=== PATIENT | male | born 1985 | race Caucasian/White ===

== ENCOUNTER 2016-07-02 14:20 | Emergency (ER) | payer BC, OTHER ==
[2016-07-02] MEDS ORDERED: MULTIVIT INFUSN,ADULT 4,VIT K 10 ML, THIAMINE HCL 100 MG in NORMAL SALINE 1,000 ML IV SCH (14:45)
--- NOTE | 2016-07-02 14:53 | ERNOTE ---
Chest Pain/Cardiac HPI Date of Service: 07/02/16 Chief Complaint: Palpitations Time Seen by Provider: 07/02/16 14:47 Source: patient, family Exam Limitations: no limitations Immunizations: IMMUNIZATION HX Immunizations Up to Date Yes Allergies/Adverse Reactions: Allergies No Known Allergies Allergy (Unverified 07/02/16 14:36) Home Medications: HOME MEDICATIONS ALPRAZolam [Xanax] 2 mg PO TID PRN 07/02/16 [Last Taken Unknown] Dexlansoprazole [Dexilant] 30 mg PO DAILY 07/02/16 [Last Taken Unknown] Diltiazem HCl [Cardizem] 30 mg PO DAILY 07/02/16 [Last Taken Unknown] Lisinopril [Zestril] 10 mg PO DAILY 07/02/16 [Last Taken Unknown] Narrative: Drank a lot of alcohol last night. Today, racing irregular heart, numb face, numb hands and arms. Took two xanax at home before coming to the [facility] ER. A fib with rate of 180 three years ago, lasted 3 days, saw cardiology, cause unknown. Timing: constant Severity/Quality: moderate Location: other - no chest pain Chest Pain Radiation: other Activities at Onset: none Modifying Factors - Improves: Present: nothing Nitro Today/Relief: no nitro taken today Aspirin Treatment Today: no aspirin today Associated Symptoms: Present: dizziness, shortness of breath, palpitations, weakness Prior Chest Pain/Cardiac Workup: Reports: other - history of panic disorder Prior Treatment: Denies: currently on antibiotics Review of Systems - Review of Systems Constitutional: Present: See HPI EYE: Present: no symptoms reported ENT: Present: no symptoms reported Respiratory: Present: no symptoms reported Cardiology: Present: See HPI Gastrointestinal/Abdominal: Present: no symptoms reported Genitourinary: Present: no symptoms reported Musculoskeletal: Present: no symptoms reported Skin: Present: no symptoms reported Neurological: Present: anxiety Endocrine: Present: no symptoms reported Hematologic/Lymphatic: Present: no symptoms reported Psych: Present: See HPI All Other Systems: All systems neg except as marked - Patient's Past Medical History Patient History - Medical: Anxiety, Other - panic attacks Patient History - Cardiac/Respiratory: Atrial Fibrillation, Hypertension Patient History - Cancer: No Hx of Cancer Patient History - Surgical Procedures: Orthopedic - Social History Smoking Status: Current some day smoker Have you smoked in the past 12 months: Yes - Immunizations Immunizations Up to Date: Yes Physical Exam - Physical Exam General Appearance: Present: wd/wn, alert, anxious Eye Exam: Normal inspection: bilateral, PERRL: bilateral, EOMI: bilateral Ears, Nose, Throat: Present: normal ENT inspection Neck: Present: normal inspection, nontender. Absent: carotid bruit, thyromegaly Respiratory: Present: no respiratory distress, normal breath sounds Cardiovascular/Chest: Present: regular rate, rhythm, no murmur Gastrointestinal/Abdominal: Present: normal bowel sounds, nontender, nondistended, soft, no organomegaly Back Exam: Present: normal inspection, no CVA tenderness, no vertebral tenderness Extremity Exam: Present: normal inspection, no edema Neurological Exam: Present: alert, oriented, no motor/sensory deficits Skin Exam: Present: normal color, warm/dry ED Progress - Results and Orders Patient's Lab Results:: I have reviewed the patient's lab results. - Vital Signs Patient's Vital Signs:: I have reviewed the patient's vital signs. Vital Signs: Vital Signs 07/02/16 07/02/16 14:33 14:40 Temperature 37.1 C Pulse Rate 104 H 82 Respiratory 14 Rate Blood Pressure 155/92 O2 Sat by Pulse 100 Oximetry - EKG EKG: NSR EKG read: Interp. by me - Progress/Reassessment Chief Complaint: Palpitations Progress:: Improved Departure - Departure Clinical Impression: Panic disorder, Alcohol abuse Disposition: Home self-care Condition: Good Instructions: Panic Attacks, [id number], Alcohol Use Disorder Additional Instructions: Follow up with your doctor in 1-[address] else [address] at least up until midnight today.
[2016-07-02 15:12] LABS: Hematocrit 44.4 % (42.0-52.0); Hemoglobin 15.4 gm/dL (13.5-18.0); Mean Cell Volume 92.1 fl (78-100); Mean Corpuscular Hgb Conc 34.7 g/dl (32-36); Mean Platelet Volume 10.1 fl (6.0-9.5); Neutrophil # 5.7 K/mm3 (1.3-6.0); Neutrophil % 67.1 % (42-75.0); Platelet Count 280 K/mm3 (150-450); Red Blood Count 4.82 M/mm3 (4.7-6.0); Red Cell Distribution Width 12.6 % (11.5-14.0); White Blood Count 8.5 K/mm3 (4.0-10.5)
[2016-07-02 15:33] LABS: ALT 33 U/L (19-67); AST 28 U/L (0-48); Albumin * 4.3 gm/dl (3.4-5.0); Alkaline Phosphatase * 80 U/L (50-170); Anion Gap 16.4 mmol/L (6.8-13.8); BUN/Creatinine Ratio 10.6 (9.0-21.6); Bilirubin, Total 0.4 mg/dL (0.0-1.1); Blood Urea Nitrogen 12 mg/dL (6-23); Ca. Corrected For Albumin 8.3 mg/dL (8.4-10.2); Calcium * 8.9 mg/dL (7.9-10.9); Carbon Dioxide 26.2 mmol/L (24-32.6); Chloride 101 mmol/L (97-106); Glucose * 100 mg/dL (70-110); Potassium 3.6 mmol/L (3.4-4.6); Sodium 140 mmol/L (132-142); T4 Free * 0.81 ng/dL (0.76-1.46); TSH * 1.024 uIU/mL (0.358-3.74); Total Protein 7.7 gm/dL (6.2-8.2)
[2016-07-02 15:34] LABS: Troponin I Less than 0.017 ng/ml (0.00-0.10)
[2016-07-02] MEDS ORDERED: LORazepam 2 MG/ML DISP.SYRIN IV ONE (16:05)
[2016-07-02] MEDS ORDERED: NORMAL SALINE 1,000 ML IV ONE (16:05)
[2016-07-02] MEDS ORDERED: LORazepam 2 MG/ML DISP.SYRIN ONE (16:08)
[2016-07-02 16:17] VITALS: BP 139/73
[2016-07-02 16:17] LABS: Cocaine Ur Negative (NEGATIVE); Urine Barbiturate Negative (NEGATIVE); Urine Opiates Negative (NEGATIVE); Urine PCP Negative (NEGATIVE)
[2016-07-02 16:23] LABS: Urine Benzodiazepines Positive (NEGATIVE)
[2016-07-02 16:25] LABS: Urine THC Negative (NEGATIVE)
[2016-07-02 16:28] LABS: Urine Appearance Clear; Urine Bilirubin Negative (NEGATIVE); Urine Blood Negative /ul (NEGATIVE); Urine Color Yellow; Urine Ketone 15 mg/dL (NEGATIVE); Urine Nitrite Negative (NEGATIVE); Urine Protein Negative (NEGATIVE); Urine Specific Gravity 1.015 SP.GR. (1.005-1.030); Urine Urobilinogen Normal (NORMAL)
[2016-07-02 16:29] LABS: Urine Bacteria None Seen; Urine RBC None Seen /hpf (0-5); Urine WBC None Seen /hpf (0-5)
== END 2016-07-02 17:28 | disposition home or self-care (01) ==
LOC: ER 14:20
DX: F41.0 Panic disorder [episodic paroxysmal anxiety] (principal); F10.10 Alcohol abuse, uncomplicated; Z72.0 Tobacco use; I10 Essential (primary) hypertension
CPT/HCPCS: 36415; 80053; 80307; 81001; 84439; 84443; 84484; 85025; 93005; 96365; 96375; 99284; G0481